=== PATIENT | female | born 1980 ===

== ENCOUNTER 2016-08-30 07:59 | Emergency (ER) | payer MEDICAID ==
--- NOTE | 2016-08-30 08:34 | ED PDOC ---
HPI: Chest Pain Time Seen by Provider: 08/30/16 08:19 Chief Complaint (Nursing): Palpitations History Per: Patient History/Exam Limitations: no limitations Onset/Duration Of Symptoms: Hrs Current Symptoms Are (Timing): Still Present Severity: Moderate Additional Complaint(s): 36-year-old female, denies significant PMHx, presents to the emergency department with complaints of chest pain. Patient states she has been experiencing anterior chest pain since this morning. Pain is persistent in nature, radiates to back and is worse with inspiration. Denies shortness of breath, cough, fevers, nausea/vomiting, dizziness, arm pain, leg swelling, or any other associated symptoms. No other complaints at this time. Past Medical History Reviewed: Historical Data, Nursing Documentation, Vital Signs Vital Signs: Last Vital Signs Temp 98.1 F 08/30/16 08:06 Pulse 82 08/30/16 08:06 Resp 19 08/30/16 08:06 BP 123/67 08/30/16 08:06 Pulse Ox 100 08/30/16 08:59 - Family History Family History: States: Unknown Family Hx - Home Medications Home Medications: Ambulatory Orders Medication Instructions Recorded Naproxen 375 mg PO Q8 PRN #21 tab 10/07/15 diaZEpam [Valium] 5 mg PO Q6 PRN #10 tab 10/07/15 Meloxicam [Mobic] 7.5 mg PO DAILY PRN #30 tab 12/10/15 Methocarbamol [Robaxin] 500 mg PO Q8 PRN #30 tab 12/10/15 Naproxen [Naprosyn] 500 mg PO Q12H #20 tab 08/30/16 - Allergies Allergies/Adverse Reactions: Allergies Allergy/AdvReac Type Severity Reaction Status Date / Time No Known Allergies Allergy Verified 12/10/15 12:20 Review of Systems ROS Statement: Except As Marked, All Systems Reviewed And Found Negative Constitutional: Negative for: Fever, Chills Cardiovascular: Positive for: Chest Pain Respiratory: Negative for: Shortness of Breath Gastrointestinal: Negative for: Nausea, Vomiting Musculoskeletal: Positive for: Back Pain Skin: Negative for: Rash Neurological: Negative for: Weakness, Numbness, Headache, Dizziness Physical Exam - Reviewed Nursing Documentation Reviewed: Yes Vital Signs Reviewed: Yes - Physical Exam Appears: Positive for: Non-toxic, No Acute Distress Head Exam: Positive for: ATRAUMATIC, NORMOCEPHALIC Skin: Positive for: Warm, Dry. Negative for: Rash Eye Exam: Positive for: Normal appearance, EOMI, PERRL Neck: Positive for: Painless ROM Cardiovascular/Chest: Positive for: Regular Rate, Rhythm Respiratory: Positive for: Normal Breath Sounds. Negative for: Accessory Muscle Use, Respiratory Distress Gastrointestinal/Abdominal: Positive for: Soft. Negative for: Tenderness Extremity: Positive for: Normal ROM. Negative for: Tenderness, Swelling Neurologic/Psych: Positive for: Alert, Oriented, Other (No focal neurological deficits.) - ECG O2 Sat by Pulse Oximetry: 100 Medical Decision Making Medical Decision Making: Impression: Chest pain Plan: * EKG * Chest X-Ray * Reassess and Disposition EKG Ordered, viewed and interpreted by ED Physician Rate 74bpm Rhythm NSR Interpret No acute ST/T wave changes Scribe Attestation: Documented by Rojelio Delgado acting as a scribe for Sravan Montiel MD. Provider Attestation: All medical record entries made by the Scribe were at my direction and personally dictated by me. I have reviewed the chart and agree that the record accurately reflects my personal performance of the history, physical exam, medical decision making, and the department course for this patient. I have also personally directed, reviewed, and agree with the discharge instructions and disposition. Disposition - Clinical Impression Clinical Impression: Pleuritis - Patient ED Disposition Is Patient to be Admitted: No Counseled Patient/Family Regarding: Studies Performed, Diagnosis, Need For Followup, Rx Given - Disposition Referrals: [facility] [Outside] Disposition: Routine/Home Disposition Time: 09:01 Condition: FAIR Prescriptions: Naproxen [Naprosyn] 500 mg PO Q12H #20 tab Instructions: Pleurisy (ED) Print Language: ENGLISH
--- NOTE | 2016-08-30 09:23 | RAD ---
HISTORY: cough COMPARISON: No prior. TECHNIQUE: Chest PA and lateral FINDINGS: LUNGS: The lungs are well inflated and clear. PLEURA: No significant pleural effusion identified. No pneumothorax apparent. CARDIOVASCULAR: Normal. OSSEOUS STRUCTURES: No significant abnormalities. VISUALIZED UPPER ABDOMEN: Normal. OTHER FINDINGS: None. IMPRESSION: No active pulmonary disease.
[2016-08-30 09:26] VITALS: BP 120/78; PULSE 78; RESP 20; TEMP 97.6; O2SAT 98
--- NOTE | 2016-08-30 14:40 | CARD ---
APPROVED REPORT EKG Measurement Heart [id number] ID [id number] <Conclusion> Normal sinus rhythm Normal ECG
== END 2016-08-30 09:27 | disposition home or self-care (01) ==
LOC: H.ER 07:59
DX: R09.1 Pleurisy (principal); R00.2 Palpitations

== ENCOUNTER 2017-06-10 04:52 | Emergency (ER) | payer MEDICAID ==
[2017-06-10 05:09] VITALS: BP 96/72; PULSE 84; RESP 16; TEMP 98.1; O2SAT 100
--- NOTE | 2017-06-10 05:59 | ED PDOC ---
Upper Extremity Pain/Injury Time Seen by Provider: 06/10/17 04:57 Chief Complaint (Nursing): Upper Extremity Problem/Injury Chief Complaint (Provider): Shoulder Pain History Per: Patient History/Exam Limitations: no limitations Onset/Duration Of Symptoms: Days (2 days ago) Current Symptoms Are (Timing): Still Present Additional Complaint(s): 36 y/o female with a history of right shoulder bursitis, presents to the ED complaining of atraumatic left shoulder pain, onset of 2 days. Patient is currently in physiotherapy and reports that over the past few days, she has been experiencing left-sided shoulder pain with movement, and claims that she no longer is able to abduct her arm. Of note, patient has been Naprosyn without relief. Past Medical History Reviewed: Historical Data, Nursing Documentation, Vital Signs Vital Signs: Last Vital Signs Temp 98.1 F 06/10/17 05:06 Pulse 84 06/10/17 05:06 Resp 16 06/10/17 05:06 BP 96/72 L 06/10/17 05:06 Pulse Ox 100 06/10/17 05:06 - Medical History PMH: No Chronic Diseases - Surgical History Surgical History: No Surg Hx - Family History Family History: States: Unknown Family Hx - Social History Current smoker - smoking cessation education provided: No Ex-Smoker (has not smoked in the last 12 months): No Alcohol: None Drugs: Denies - Home Medications Home Medications: Ambulatory Orders Medication Instructions Recorded Naproxen 375 mg PO Q8 PRN #21 tab 10/07/15 diaZEpam [Valium] 5 mg PO Q6 PRN #10 tab 10/07/15 Meloxicam [Mobic] 7.5 mg PO DAILY PRN #30 tab 12/10/15 Methocarbamol [Robaxin] 500 mg PO Q8 PRN #30 tab 12/10/15 Naproxen [Naprosyn] 500 mg PO Q12H #20 tab 08/30/16 Naproxen [Naprosyn] 500 mg PO Q12 #14 tab 04/03/17 traMADol [Ultram] 50 mg PO Q6 #10 tab 04/03/17 Naproxen [Naprosyn] 500 mg PO Q12 #14 tab 06/10/17 traMADol [Ultram] 50 mg PO Q6 #16 tab 06/10/17 - Allergies Allergies/Adverse Reactions: Allergies Allergy/AdvReac Type Severity Reaction Status Date / Time No Known Allergies Allergy Verified 04/03/17 05:43 Review of Systems ROS Statement: Except As Marked, All Systems Reviewed And Found Negative Constitutional: Negative for: Fever Musculoskeletal: Positive for: Shoulder Pain (chronic right shoulder pain, acute left shoulder pain) Physical Exam - Reviewed Nursing Documentation Reviewed: Yes Vital Signs Reviewed: Yes - Physical Exam Appears: Positive for: Non-toxic, No Acute Distress Head Exam: Positive for: ATRAUMATIC Skin: Positive for: Normal Color, Warm Cardiovascular/Chest: Positive for: Regular Rate, Rhythm. Negative for: Murmur Respiratory: Positive for: Normal Breath Sounds. Negative for: Respiratory Distress Extremity: Positive for: Tenderness (left shoulder tenderness upon abduction). Negative for: Normal ROM (cannot abduct her arm) Neurologic/Psych: Positive for: Alert, Oriented - ECG O2 Sat by Pulse Oximetry: 100 (RA) Pulse Ox Interpretation: Normal Medical Decision Making Medical Decision Making: Time: --05:32 Impression: --36 yo female with left shoulder bursitis Plan: --Ed Urine --Cyclobenzaprine 10 mg PO --Toradol 30mg IM --Left Shoulder X-ray Reassess --06:02 X-ray shows no significant abnormalities. Scribe Attestation: Documented by Esequiel Mancini acting as a scribe for Raghavendra Malone MD. Disposition - Clinical Impression Clinical Impression: Shoulder bursitis - Disposition Referrals: Tessa Childers [Primary Care Provider] - Disposition: Routine/Home Disposition Time: 06:15 Prescriptions: Naproxen [Naprosyn] 500 mg PO Q12 #14 tab traMADol [Ultram] 50 mg PO Q6 #16 tab Instructions: Shoulder Bursitis (ED) Forms: [employer] (Vietnamese) Print Language: YAKUT
--- NOTE | 2017-06-10 09:33 | RAD ---
PROCEDURE: Radiographs of the Left Shoulder HISTORY: shoulder pain COMPARISON: No prior. FINDINGS: BONES: No acute fracture or destructive bony lesion identified. JOINTS: Normal. Glenohumeral and acromioclavicular joints preserved. No osteoarthritis. SOFT TISSUES: Normal. OTHER FINDINGS: None. IMPRESSION: Normal radiographs of the left shoulder.
== END 2017-06-10 06:32 | disposition home or self-care (01) ==
LOC: H.ER 04:52
DX: M75.52 Bursitis of left shoulder (principal)
CPT/HCPCS: 73030; 81025; 96372; 99284; J1885